=== PATIENT | female | born 1970 | race Caucasian/White ===

== ENCOUNTER → 2018-03-18 | Outpatient (CLI) | payer OTHER ==
[~2018-03-18] VITALS: Ht 180.3 cm; Wt 145.6 kg
[~2018-03-18] MED LIST: ALLEGRA60 MG; CELEXA 10 MG TA10 M1; CELEXA40 MG PO; GLUCOTEN CAPLE1 EACH PO; KAPSPARGO SPRIN25 MG PO; METFORMIN HCL500 MG PO; NORCO 5-325 TA1 EACH PO; TOPROL XL50 MG PO; VICTOZA0.6 MG/0.1 SUBQ
--- NOTE | ~2018-03-18 | CATHLAB ---
[facility] [address] [place] [address] INVASIVE PROCEDURE REPORT Name: YOLY LANDA Room #: REG [facility]Carla#: [id number] Admission: 03/18/18 Attend Phys: Pj Lebron Discharge: Date of : 68 Date of Service: 03/26/18 1647 Report #: [id number] THIS REPORT FOR: //name// APPROVED REPORT Study performed: 03/18/2018 10:01:34 Patient Details Patient Status: Out-Patient Room #: The patient is a 47 year-old female Event Personnel Pj De Jesus Editor City, Jesús Rose RN, Lori Harris RT(R)() Scrub, Suzette Dillard RTR, ZAIN Scrub, Samuel Guillory Monitor Procedures Performed Left Heart Cath w/or w/o Coronaries [id number] [facility] supervision of conscious sedation Indication Positive stress test, Chest pain Procedure Narrative The Right Groin^ was infiltrated with 1% Lidocaine subcutaneous anesthesia. A PINNACLE 4FR Sheath #[id number] sheath was inserted into the RFA^. Coronary angiography was performed using coronary diagnostic catheters. The right coronary system was accessed and visualized with a 4FR JR 4 #[id number] catheter. The left coronary system was accessed and visualized with a 4FR JL4 #[id number] catheter. The left ventricle was accessed and visualized with a 4FR PIGTAIL 145 ANGLED #[id number] catheter. Left ventricular/Aortic Valve gradient assessed via catheter pullback. Hemostasis was obtained with manual pressure following sheath removal without any complications. The patient tolerated the procedure well and there were no complications associated with the procedure. There was no hematoma. Intraoperative Conscious Sedation Sedation start time: 10.29 Case end Time: 10.50 Versed 3 mg Fluoro Time: 2.44 minutes Dose: DAP 7274 cGycm2 824 mGy Contrast Type and Amount: Omnipaque 50 ml [facility] [place] [address] INVASIVE PROCEDURE REPORT Name: YOLY LANDA Room #: REG [facility]#: [id number] Admission: 03/18/18 Attend Phys: Pj Lebron Discharge: Date of : 68 Date of Service: 03/26/18 1647 Report #: [id number] Coronary Angiography The patient's coronary anatomy is left dominant. Diagnostic Cath Left Main Normal origin and caliber bifurcates left anterior descending left circumflex. No significant obstructive lesions are noted LAD Small to moderate caliber type III vessel which courses in the anterior interventricular sulcus giving rise to septal and diagonal branches. The course is quite tortuous reminiscent of a hypertensive vessel. There is mild luminal irregularities but no high-grade lesions noted Diagonal 1 Her vessel coursing along the anterolateral wall free of high-grade disease Circumflex Moderate caliber dominant vessel which gives rise to an early marginal branch which she of high-grade disease. The vessel itself courses in the intraventricular is groove giving rise to several lateral and posterior wall marginal branches prior to terminating as a posterior descending artery which is small to moderate in caliber. There is no high-grade lesions identified. OM1 Small to moderate caliber vessel tortuous in its course without significant lesions identified L PDA Small-caliber vessel free of high-grade stenosis Right Coronary Small nondominant vessel without significant lesions Left Ventriculography Left Ventriculography was not performed. Hemodynamics The aortic pressure is 127/82 mmHg with a mean of 101 mmHg. The left ventricular pressure is 131/9 mmHg with a mean of mmHg. The left ventricular end diastolic pressure is 22 mmHg. There was no gradient across the aortic valve upon pullback. Pullback from the left ventricle to the aorta revealed no gradient across the aortic valve. Conclusion 1. Normal coronary arteries 2. Abnormal hemodynamics with elevated left ventricular end-diastolic pressures [facility] [address] [place] [address] INVASIVE PROCEDURE REPORT Name: SYEDAYOLY ROSE Room #: REG [facility]#: [id number] Admission: 03/18/18 Attend Phys: Pj Lebron Discharge: Date of : 68 Date of Service: 03/26/18 1647 Report #: [id number] Recommendations Cardiac Risk Reduction Program <ELECTRONICALLY SIGNED> By: Pj De Jesus MD 03/26/181646 46 46 Pj De Jesus MD /INF
--- NOTE | ~2018-03-18 | H ---
[facility] [place] [address] HISTORY AND PHYSICAL Name: SYEDAYOLY ROSE Room #: REG [facility].#: [id number] Admission: 03/18/18 Attend Phys: Pj De Jesus Discharge: Date of : 68 Report #: [id number] THIS REPORT FOR: //name// CC: FAM unknown Pj MALLOYIA AJIT HISTORY OF PRESENT ILLNESS: This is a very pleasant 47-year-old female patient who was seen and evaluated in the office for chest pains. She does have hypertension, dyslipidemia, diabetes which is diet controlled. She underwent noninvasive evaluation that demonstrated an equivocal intermediate risk study involving the anterolateral wall. In view of this, cardiac catheterization was recommended. Upon questioning, she has not had any significant change in symptomatology, whatsoever. No chest tightness, heaviness or fullness. PHYSICAL EXAMINATION: GENERAL: Well-developed, well-nourished, white female, resting comfortably, in no acute distress. VITAL SIGNS: Noted in the chart. HEENT: Normocephalic, atraumatic. Pupils are equal, round, reactive to light and accommodation. Extraocular muscles are intact. Sclerae and conjunctivae are anicteric. NECK: JVD is normal. Carotid upstrokes are bilaterally symmetrical. No bruits are heard. No thyromegaly. No lymphadenopathy. LUNGS: Clear to auscultation. No wheezes, rhonchi or crackles. No CVA tenderness. CARDIAC: Demonstrates a regular rhythm. Normal first and second heart sounds. No ventricular or atrial gallops, no rubs noted. No murmurs. No lifts or heaves, PMI normal. ABDOMEN: Soft, nontender, nondistended. Normal bowel sounds. EXTREMITIES: Without cyanosis, clubbing or edema. Distal pulses are intact. DTR symmetrical. NEUROLOGIC: Cranial nerves 2-12 are grossly normal and symmetrical. PSYCHIATRIC: Alert, oriented with normal affect. SKIN: Warm and dry. IMPRESSION: Chest pain with significant risk factors and abnormal perfusion scan. Cardiac catheterization has been recommended. The risks, complications, and alternatives of catheterization, angioplasty and conscious sedation have been discussed with the patient. She voices understanding and wishes to proceed. By: [id number] Pj De Jesus MD /nt
[2018-03-18 09:31] VITALS: BP 129/79
[2018-03-18 09:39] LABS: HEMATOCRIT 43.2 % (37.0-47.0); HEMOGLOBIN 14.8 gm/dL (12.0-15.0); MCH 31.9 pg (26.0-34.0); MCHC 34.3 g/dL (28.0-37.0); MCV 92.9 fL (80.0-100.0); RBC 4.65 mil/uL (4.20-5.00); RDW 13.5 % (10.5-14.5); WBC 8.3 thou/uL (4.0-11.0)
[2018-03-18 09:52] LABS: CALCIUM 9.6 mg/dL (8.5-10.1); CREATININE 0.7 mg/dL (0.6-1.0)
== END | disposition home or self-care (01) ==
LOC: CATH 09:03
PROVIDERS: Internal Medicine
DX: I11.0 Hypertensive heart disease with heart failure (principal); I50.1 Left ventricular failure, unspecified; Z90.710 Acquired absence of both cervix and uterus; Z98.890 Other specified postprocedural states; Z82.49 Family history of ischemic heart disease and other diseases of the circulatory system; Z79.899 Other long term (current) drug therapy; Z79.4 Long term (current) use of insulin